=== PATIENT | female | born 1975 | race Caucasian/White ===

== ENCOUNTER 2016-07-08 05:32 | Inpatient (IN) | payer OTHER ==
[~2016-07-08] VITALS: Ht 172.7 cm; Wt 72.6 kg
[2016-07-08] MEDS ORDERED: PROZ20 PO (06:04)
[2016-07-08] MEDS ORDERED: PREN1TAB25 PO (06:04)
[2016-07-08] MEDS ORDERED: OMEP40CA36 PO (06:05)
[2016-07-08] MEDS ORDERED: Sodium Citrate-Citric Acid 15 mL Solution PO SCH (06:30)
[2016-07-08] MEDS ORDERED: Oxytocin 10 Unit/mL Inj IM PRN ×2 (06:30→09:05)
[2016-07-08] MEDS ORDERED: Hemorrhage Kit, Post Partum XX ONE ×2 (06:30→09:05)
[2016-07-08] MEDS ORDERED: Carboprost 250 mCg/mL Inj IM PRN ×2 (06:30→09:05)
[2016-07-08] MEDS ORDERED: Methylergonovine 0.2 mg/mL Inj IM PRN ×2 (06:30→09:05)
[2016-07-08 06:46] LABS: Mean Corpuscular Hemoglobin 30.3 pg (27.0-35.0)
--- NOTE | 2016-07-08 06:49 | PCM.HPOB ---
Subjective Date of Service: Jul 08, 2016 Referring Provider: Admitting Physician: Julio Negron MD Primary Care Physician: Sosa Clark MD Attending Physician: Julio Negron MD Chief Complaint Melania Badillo is a 40 year old female at 39 weeks and 1 day whose is complicated by advanced maternal age, Rh negative, and prior section who presents for scheduled section. She has had some contractions that last for an hour but are not closer than 10 minutes together and are weak and non-painful. She has measured small for gestational age throughout but she also did with prior . Ultrasound on revealed a single living intrauterine gestation demonstrating appropriate interval growth with and EFW in the 57th percentile for gestational age. will be present for operation. Patient received rhogam at 28 weeks. labs inlcude blood type A negative , antibody negative, varicella immune, RPR nonreactive, hepatitis B antigen negative, and HIV screen nonreactive. History of Present History of Present Illness Term present for repeat section. Obstetrical Complications: Other (Rh negative, advanced maternal age, and prior section) Past Medical History Obstetrical History: female with prior section. Rh negative. Gynecologic History: Normal pap smear in October of 2015. Medical History: Depression Surgical History: section Hx Tobacco Use: No Hx Alcohol Use: No Hx Substance Use: No Past Family History Family History Diabetes and hypertension on paternal side. No history of cancer. Living Arrangement: with Family Genetic Screening/Counseling Genetic Screening/Counseling: Negative Baby father-had child w defect: No Review of Systems Constitutional: Y: Change of appitite, Chills, Dizziness, Fever, Malaise, Other , Pain, Sweats, Weakness, Weight loss Eyes: Denies: Blurred Vision, Conjunctive Inflammation, Double Vision, Eyelid Inflammation, Other, Pain, Redness, Vision Changes Cardiovascular: Denies: Chest Pain, Edema, Orthopnea, Other, Palpitations, SOB while laying flat Respiratory: Denies: Cough, Cough with bloody sputum, Other, Pleuritic Chest Pain, Pleuritic Chest Pain, SOB with Exertion, Sputum, Wheezing Gastrointestinal: Denies: Abdominal Pain, Black tarry stools, Blood in stool ( red), Change in Appetite, Constipation, Diarrhea, Epigastric pain, Heartburn, Nausea, Other, Use of Laxatives, Vomiting Genitourinary: Denies: Anuria, Change in Frequency, Dysuria, Hematuria, Incontinence, Nocturia, Other, Retention Musculoskeletal: Denies: Back Pain, Deformity, Limitation of Function, Neck Pain, Other, Redness, Shoulder Pain, Swelling Skin: Denies: Bruising, Dry or Flakiness, Jaundice, Lesions, Other, Rash, Scars , Ulcers Neurological: Denies: Change in Speech, Confusion, Dizziness, Incoordination, Numbness, Other, Seizures, Somnolence, Tremors, Weakness Psychologic: Reports: Anxious Hematologic: Denies: Abnormal bleeding, Adenopathy, Bruising, Other Medications Home medications vitamins Omeprazole Allergy Coded Allergies: No Known Allergies (Unverified , 07/08/16) Exam Constitutional: Well-developed, Well-nourished, Normal habitus HEENT: Atraumatic, PERRLA, EOMI, Scleral Anicteric Lungs: Clear to Auscultation, Normal Air Movement Heart: Regular Rate/Rhythm, Normal S1, Normal S2, No Murmurs/Rubs/Gallops Abdomen: Gravid, Normal bowel sounds, No tenderness Extremities: Pulses Palpable x4, Warm, No Edema Neurological/Psychiatric: Alert, Oriented X3, Cooperative, No Acute Distress Neuro: Grossly Neurologically Intact Labs/Diagnostics Labs CBC Test 07/08/16 06:30 White Blood Count 7.3th/mm3 (3.8-10.1) Red Blood Count 3.89mil/mm3 (3.90-5.20) Hemoglobin 11.8g/dL (12.0-15.6) Hematocrit 35.4% (35.0-46.0) Mean Corpuscular Volume 91.0fL (81-100) Mean Corpuscular Hemoglobin 30.3pg (27.0-35.0) Mean Corpuscular Hemoglobin Concent 33.3% (32.0-37.0) Red Cell Distribution Width 13.0% (12.3-15.4) Platelet Count 313bil/L (150-400) Maternal Blood Type: A Hx Rho(D) Immune Globulin: Yes Antibody Screen: negative Group B Strep Results: Negative Previous Infant with GBS: No Rubella: Immune Additional Information Rhogam given at 28 weeks. OB Intrapartum Assessment/Plan Assessment 1. female at 39 weeks 1 day scheduled for repeat section 2. Rh negative 3. Advanced maternal age 4. Prior section 5. Depression Intrapartum plan 1. Planned repeat section this morning, 07/08/16. wishes to be present for procedure. 2. Patient currently not on medication for depression. 3. Rhogam received at 28 weeks. Additional dose to be ordered. 4. Plan for routine care after section. Attending Statement The patient was seen and examined together with Dr. Dylan Herrera DO on 2016 and I agree with the history, exam and plan as outlined in the note above. DYLAN HERRERA DO Jul 08, 2016 06:49 Julio Negron MD Jul 08, 2016 09:41
--- NOTE | 2016-07-08 07:22 | PCM.HPANE ---
Patient Data Surgeon Admitting Provider:Julio Negron MD Attending Provider:Julio Negron MD Primary Care Physician:Sosa Clark MD Other Provider:Fang Harris Anesthesia Reason for Visit repeat section repeat section Ht/WT & BMI Body Mass Index Allergies Coded Allergies: No Known Allergies (Unverified , 07/08/16) Diabetes History Hx Diabetes?: No MRSA MRSA: No Medications Hypertension Medication: No Home Meds Incl Beta Aaron: No Reported Medications Omeprazole 40 Mg Capsule.dr40 Mg PO Ref 0 07/08/16 Fluoxetine (Prozac)20 Mg [id number] Mg PO MORNING Ref 0 07/08/16 Vit#96/Ferrous Fum/FA ( Tablet)1 Each Tablet1 Each PO DAILY 07/08/16 History History of ENT Problems?: No Hx of Heart Problems?: No Hx of Respiratory Problem?: No Hx Neurologic Problems?: No Hx of GI Problems?: No Hx of Problems?: No HX of Peritoneal Dialysis: No Female Hx: Positive for:: Currently Hx Musculoskeletal Problems?: No Hx of Psycho/Social Problems?: No Hx Surgeries?: Yes (c/s with epidural) Hx Any Other Health Problems?: No Hx Alcohol Use: NoHx Substance Use: No Smoking Status: Never Smoker Stop/Bang Treated for Sleep Apnea?: No Do You Have a CPAP Machine?: No JORGITO Risk Assessment: Low Risk, <3 Yes Risk Assessment Category Category 1A: Patient has history of documented sleep apnea, and HAS NOT received any narcotic, sedative or anesthesia administration during this stay. Category 1B: Patient has history of documented sleep apnea, and HAS received any narcotic , sedative or anesthesia administration during this stay Category 2: Patient has SUSPECTED Obstructive Sleep Apnea, and HAS received any narcotic , sedative or anesthesia administration during this stay. Category 3: Patient has SUSPECTED Obstructive Sleep Apnea and HAS NOT received narcotic, sedative or anesthesia administration during this stay. Category 4: Outpatient in Procedural Areas with known sleep apnea or who screen positive for High Risk via the STOP/BANG questionnaire. Exam Exam General Appearance: Alert, Oriented X3, Cooperative, No Acute Distress HEENT/AIRWAY: MP 2 Lungs: Clear to Auscultation, Normal Air Movement Heart: Exam Unremarkable, Regular Rate/Rhythm, No Murmurs/Rubs/Gallops Meds/Labs/Diagnostics Labs Test 07/08/16 06:30 White Blood Count 7.3th/mm3 (3.8-10.1) Red Blood Count 3.89mil/mm3 (3.90-5.20) Hemoglobin 11.8g/dL (12.0-15.6) Hematocrit 35.4% (35.0-46.0) Mean Corpuscular Volume 91.0fL (81-100) Mean Corpuscular Hemoglobin 30.3pg (27.0-35.0) Mean Corpuscular Hemoglobin Concent 33.3% (32.0-37.0) Red Cell Distribution Width 13.0% (12.3-15.4) Platelet Count 313bil/L (150-400) Plan Impression Patient chart reviewed, patient interviewed and anesthestic plan with risks, benefits, and alternatives discussed, and informed consent obtained. ASA Physical Status: ASA1 Normal Healthy Anesthetic Plan: SAB Bene/Risks/Altern/Consents: Yes HP Complete Prior to Induction: Yes Drake Ag MD Jul 08, 2016 07:22
[2016-07-08] MEDS ORDERED: EPHEDrine Sulfate 50 mg/mL Inj IVPUSH PRN (07:25)
[2016-07-08] MEDS ORDERED: fentaNYL-PF 50 mCg/mL 2 mL Inj IVPUSH PRN (07:25)
[2016-07-08] MEDS ORDERED: Atropine 0.4 mg/mL Inj IV PRN (07:25)
[2016-07-08] MEDS: Lactated Ringer's 1,000 ML IV SCH ×4 (07:26→16:26)
[2016-07-08] MEDS ORDERED: Oxytocin 10 Unit/mL Inj ONE (07:55)
[2016-07-08] MEDS ORDERED: EPHEDrine/NS 5 mg/mL 5 mL Syringe ONE (07:55)
[2016-07-08] MEDS ORDERED: Phenylephrine/NS 100 mCg/mL 10 mL Syringe IVPUSH ONE (07:55)
[2016-07-08] MEDS ORDERED: Morphine PF 1 mg/mL 10 mL Inj ONE (07:57)
[2016-07-08] MEDS ORDERED: fentaNYL-PF 50 mCg/mL 2 mL Inj ONE (07:57)
[2016-07-08] MEDS ORDERED: Sodium Chloride LOK Flush 10 mL Syringe IVFLUSH PRN (09:05)
[2016-07-08] MEDS ORDERED: LANOlin HPA 7 Gm Ointment TOPICAL PRN (09:05)
[2016-07-08] MEDS ORDERED: Oxytocin 30 Units/500 mL LR 30 UNITS in IV Premix 1 EACH IV PRN (09:05)
--- NOTE | 2016-07-08 09:09 | PCM.SURGOP ---
Surgical Operative Report Date of Service: Jul 08, 2016 Pre Operative Diagnosis 1. Previous 2. Desires Sterilization 3. AMA Post Operative Diagnosis 1. Previous 2. Desires Sterilization 3. AMA Procedure: 1. Repeat low transverse delivery 2. Bilateral tubal ligation using a modified [place] method. Surgeon and Burnisher: Surgeon: Julio Negron MD Assistants: Brenda Woodward MD Resident: Sera Mcpherson DO PGY1 Dr. Woodward was necessary for this procedure to help with exposure and delivery of infant. Indication for Procedure 40 y/o -0-0-1 at 39 weeks gestation who had a previous delivery and desires a repeat with tubal ligation. Findings: Intraoperative findings showing a normal-appearing uterus, fallopian tubes and ovaries bilaterally. There was no significant abdominal adhesions. There was a female in cephalic presentation with an infant weight of 3277 g and Apgars of 7 and 9. Procedure Details Patient was taken to the operating room where her epidural anesthesia was found adequate. She was placed in a lithotomy position in a leftward tilt and prepared and draped in the normal sterile fashion. A Pfannenstiel incision was made with scalpel and this incision was carried down to the underlying fascia with the Bovie cautery. The fascia was nicked in the midline and this incision was extended laterally with the Beltran scissors. The underlying rectus muscle was dissected off with blunt and sharp dissection. The rectus muscles were in midline and the peritoneum was entered bluntly with the surgeon's hands. This opening was then extended with the surgeon's hands and gentle traction. The lower uterine segment was identified a bladder flap was created and the uterus was incised in low transverse fashion with scalpel. The infant was delivered in a cephalic presentation without difficulty. The cord was doubly clamped and ligated after 1 minute and handed off to the awaiting nurse and respiratory therapist. Cord blood was sent. The placenta was removed manually and the uterus was exteriorized and cleared of all clots and debris. The uterine incision was then repaired with 0 Vicryl suture in a running fashion. A second suture of 0 Vicryl was used for hemostasis . The gutters were irrigated with copious amounts of normal saline. Good hemostasis was assured. The uterus was returned to the patient's perineal cavity. The uterine incision was inspected a second time and noted to be hemostatic. The fascia was then reapproximated with 0 Vicryl suture in a running fashion. The subcutaneous layer was closed with 0 plain gut. The skin was closed with a 4-0 Monocryl in a subcutaneous fashion. Dermabond and Steri-Strips are applied. All lap, instrument, and needle counts were correct 2 at the procedure the patient was taken to her room awake and in good condition. Complications There were no periprocedural complications identified. Surgical Specimen Removed: Yes Specimen sent to Pathology: No Surgical Specimen description: Placenta Anesthetic Plan: SAB Grafts, Implants: None Output, Estimated Blood Loss: 600 Blood Administration during lopez: No Catheters: None Post Operative Plan Routine postoperative and care. Julio Negron MD Jul 08, 2016 09:09
[2016-07-08] MEDS ORDERED: Acetaminophen IV 1,000 MG in IV Premix 1 EACH IV PRN (12:20)
--- NOTE | 2016-07-08 17:59 | PCM.ANEP1 ---
Post Anesthesia Phase 1 PACU Phase 1 Assessment Date of Service: Jul 08, 2016 Anesthetic Administered: SAB Level of Alertness: Awake, talking JACKSON's with Equal Strength: Yes Pain: No Nausea or Vomiting: No Oxygen Delivery: Nasal Cannula Lungs: Clear to Auscultation, Normal Air Movement Dermatome Level: T10 (Umbilicus) Drake Ag MD Jul 08, 2016 17:59
--- NOTE | 2016-07-08 18:00 | PCM.ANEP2 ---
Post Anesthesia Evaluation ASA/CMS Post Anesthesia VS in Patient's Normal Range?: Yes Resp Stable; Airway Patent?: Yes CV Function & Hydration Stable: Yes Mental Status Recovered?: Yes Pain control Satisfactory?: Yes N/V Control Satisfactory?: Yes Drake Ag MD Jul 08, 2016 18:00
[2016-07-09] MEDS: oxyCODONE-Acetamin 5-325 mg Tablet PO PRN ×5 (01:49→20:31)
--- NOTE | 2016-07-09 07:07 | PCM.PNOBPP ---
Subjective Date of Service Jul 09, 2016 Post : Repeat Ceserean Delivery Subjective Melania Badillo is a 40 year old female day 1 after repeat section and tubal ligation. was complicated by advanced maternal age, Rh negative, and prior section. Patient received rhogam at 28 weeks and yesterday (07/08). Patient is doing well this morning. Bleeding is light, tolerating diet without nausea and vomiting, Acosta removed and urinating without difficulty, passing flatus but no BM. Patient ambulating in room and pain controlled with Percocet PRN. She is exclusively. Lochia: Light Pain Management: PO pain meds (Percocet) Gastrointestinal: No N/V, Passing Flatus Postop Activity: Ambulating Independently Group B Strep Results: Negative Rubella: Immune Blood Type: A RH Type: Negative Labs Laboratory Tests 07/08/16 06:30: White Blood Count 7.3, Red Blood Count 3.89, Hemoglobin 11.8, Hematocrit 35.4, Mean Corpuscular Volume 91.0, Mean Corpuscular Hemoglobin 30.3, Mean Corpuscular Hemoglobin Concent 33.3, Red Cell Distribution Width 13.0, Platelet Count 313 Exam Vital Signs Vital Signs: VS reviewed, stable Exam Abdomen: Uterus is, Fundus firm : Voiding without difficulty, Acosta catheter (removed at 0500 on 07/09) Extremities: No tenderness/swelling, No edema Lungs: Clear to Auscultation, Normal Air Movement Heart: Regular Rate/Rhythm, Normal S1, Normal S2, No Murmurs/Rubs/Gallops General: Alert, Oriented X3, Cooperative, No Acute Distress Surgical Wound : Wound Location/Description Pfannensteil incision Incision General Appearence: Wound under dressing Dressing & Drainage Status: Dry & Intact, No Odor OB Post Assessment/Plan Assessment 1. female day 1 after repeat section and tubal ligation. 2. Rh negative. 3. Advanced maternal age. 4. Prior section. 5. Depression. Pain Evaluation: Adequate Pain Control Post plan: Continue routine post care, Discharge home tomorrow Plan: 1. Routine care. 2. Discontinued IV pain medications and switched to oral Percocet PRN. 3. Continue to ambulate. 4. General diet as tolerated. 5. Rhogam received at 28 weeks and additional dose given on 07/08 after section. 6. Plan for discharge tomorrow. DYLAN HERRERA DO Jul 09, 2016 06:42
[2016-07-09 07:39] LABS: Mean Corpuscular Hemoglobin 30.7 pg (27.0-35.0); Mean Corpuscular Volume 92.1 fL (81-100)
[2016-07-10] MEDS: oxyCODONE-Acetamin 5-325 mg Tablet PO PRN ×2 (02:40→08:58)
[2016-07-10] MEDS ORDERED: IBUP800T28 PO (06:34)
[2016-07-10] MEDS ORDERED: OXYC1TAB24 PO (06:34)
[2016-07-10] MEDS ORDERED: ASCO500C6 PO (06:34)
[2016-07-10] MEDS ORDERED: FERR-83 PO (06:34)
[2016-07-10] MEDS ORDERED: DOCU-41 PO (06:34)
--- NOTE | 2016-07-10 06:42 | PCM.DIOB ---
SERA HERRERA DO 07/10/16 0642: Obstetrical Disch Instruction Date of Service: Jul 10, 2016 Dates of Hospitalization Date of Hospital Admission Jul 08, 2016 at 05:32 Providers Admitting Physician: Julio Negron MD Primary Care Physician: Sosa Clark MD Attending Physician: Julio Negron MD Discharge Diagnosis Discharge Diagnosis 1. female day 2 after repeat section and tubal ligation. 2. Rh negative. 3. Advanced maternal age. 4. Prior section. 5. Depression. Problems: Diet Discharge Diet: No restrictions Activity Discharge Activity-General: Pelvic Rest for 6 weeks, Try not to overdue, Be up and about, Activity as pain allows, Activity as energy allows, No lifting >10 pounds for 4-6 weeks Dressing and Incisional Care Dressing Care: Allow Steri Stripes to fall off Hygiene: May shower, DO NOT soak incision under water, NO bathtub, hot tub or whirlpool Additional Instructions Discharge Instructions Continue your vitamin. Please take the iron and vitamin c together for your anemia. Do not take more pain medication (Percocet) than is necessary -- less is better. Percocet pills have Tylenol (acetaminophen) in them at 325mg per pill. Do not take Tylenol in addition to your pain medication but should take one or the other. Both iron and Percocet can give you constipation so you have also been given a prescription for docusate to keep you regular. Be sure to follow up in 2 weeks and then again in 6 [facility] at [facility]. Pelvic rest for 6 weeks (nothing per vagina including intercourse, tampons) If you have a fever greater than 100.4, please call [facility]. There is always someone finisher fine diamond dies to talk to. If you have an increase in bleeding, call [facility]. If you have a lot of bleeding suddenly, especially if you have symptoms of dizziness & weakness with it, get emergency help. If you start experiencing extreme depression, especially if you feel that you are a danger to yourself or your family, seek emergency help. You have been through a lot -- BE SURE TO TAKE CARE OF YOURSELF. You have been sent home with the following prescriptions: - Percocet 5/325 mg, take 1 tab every 4-6 hours as needed for pain. - Colace 100 mg twice a day as needed for constipation. - Ferrous sulfate 325 mg every day. - Vitamin C 500 mg every day. Take with iron. - Ibuprofen 800mg take 1 tab every 8 hours as needed for pain. Follow Up Plan Follow Up Plan Follow-up in 2 and 6 weeks with [facility]. Follow-up Provider (F9): Julio Negron MD Follow-up appointment: Weeks (2 weeks and again in 6 weeks) Call your provider for: Fever or Chills, Shortness of breath, Heavy vaginal bleeding, Heavy bleeding, Epigastric pain, Excessive constipation, Vaginal discomfort, Red painful breasts Julio Negron MD 07/10/16 1128: Obstetrical Disch Instruction Attending Statement The patient was seen and examined together with Dr. Sera Herrera DO on 2016 and I agree with the history, exam and plan as outlined in the note above. SERA HERRERA DO Jul 10, 2016 06:42 Julio Negron MD Jul 10, 2016 11:28
--- NOTE | 2016-07-10 07:05 | PCM.DC.OB ---
Obstetrical Discharge Summary Date of Service Jul 10, 2016 Date of hospital admission Jul 08, 2016 at 05:32 Date of Discharge: Jul 10, 2016 Providers Admitting Physician: Julio Negron MD Primary Care Physician: Sosa Clark MD Attending Physician: Julio Negron MD Diagnosis at Time of Discharge 1. female day 2 after repeat section and tubal ligation. 2. Rh negative. 3. Advanced maternal age. 4. Prior section. 5. Depression. Problems: Invasive procedures section and tubal ligation Date of Procedure: Jul 08, 2016 Brief History and Physical: Per Dr. Herrera's H&P: Melania Badillo is a 40 year old female at 39 weeks and 1 day whose is complicated by advanced maternal age, Rh negative, and prior section who presents for scheduled section. She has had some contractions that last for an hour but are not closer than 10 minutes together and are weak and non-painful. She has measured small for gestational age throughout but she also did with prior . Ultrasound on revealed a single living intrauterine gestation demonstrating appropriate interval growth with and EFW in the 57th percentile for gestational age. will be present for operation. Patient received rhogam at 28 weeks. labs inlcude blood type A negative , antibody negative, varicella immune, RPR nonreactive, hepatitis B antigen negative, and HIV screen nonreactive. Hospital Course: Melania Badillo is a 40 year old female day 2 after repeat section and tubal ligation. was complicated by advanced maternal age, Rh negative, and prior section. Patient received rhogam at 28 weeks and second dose on 07/08. Patient is doing well this morning. Bleeding is light, tolerating diet without nausea and vomiting, Acosta removed and urinating without difficulty, passing flatus but no BM. Patient ambulating in room and pain controlled with Percocet and ibuprofen PRN. She is exclusively. Ascorbic Acid (Vitamin C) 500 Mg Capsule.er 500 MG PO DAILY Prescribed by: SERA HERRERA DO Docusate Sodium (Colace) 100 Mg Capsule 100 MG PO BID PRN PRN For Constipation Prescribed by: SERA HERRERA DO Ferrous Sulfate (Ferrous Sulfate) 325 Mg Tablet 325 MG PO DAILY Prescribed by: SERA HERRERA DO Fluoxetine (Prozac) 20 Mg Capsule 20 MG PO MORNING (Reported) Last Taken: Unknown Dose on 07/07/16 1030 Ibuprofen (Ibuprofen) 800 Mg Tablet 800 MG PO TID PRN PRN For Pain Prescribed by: SERA HERRERA DO Omeprazole (Omeprazole) 40 Mg Capsule.dr 40 MG PO (Reported) Last Taken: Unknown Dose on Unknown Date & Time Vit#96/Ferrous Fum/ FA ( Tablet) 1 Each Tablet 1 EACH PO DAILY (Reported) Last Taken: UNKNOWN on Unknown Date & Time oxyCODONE-Acetaminophen 5-325 mg (oxyCODONE-Acetaminophen 5-325 mg) 1 Each Tablet 1 TAB PO Q4-6H PRN PRN For Pain Prescribed by: SERA HERRERA DO Discharge Medications: - Percocet 5/325 mg, take 1 tab every 4-6 hours as needed for pain. - Colace 100 mg twice a day as needed for constipation. - Ferrous sulfate 325 mg every day. - Vitamin C 500 mg every day. Take with iron. - Ibuprofen 800mg take 1 tab every 8 hours as needed for pain. Follow-up plan Follow-up in 2 and 6 weeks with [facility]. Discharge Diet: No restrictions Discharge Activity-General: Pelvic Rest for 6 weeks, Try not to overdue, Be up and about, Activity as pain allows, Activity as energy allows, Other (no lifting greater than 10 pounds for 4-6 weeks.) Patient instructions Continue your vitamin. Please take the iron and vitamin c together for your anemia. Do not take more pain medication (Percocet) than is necessary -- less is better. Percocet pills have Tylenol (acetaminophen) in them at 325mg per pill. Do not take Tylenol in addition to your pain medication but should take one or the other. Both iron and Percocet can give you constipation so you have also been given a prescription for docusate to keep you regular. Be sure to follow up in 2 weeks and then again in 6 weeks at [facility]. Pelvic rest for 6 weeks (nothing per vagina including intercourse, tampons) If you have a fever greater than 100.4, please call [facility]. There is always someone fiction and nonfiction prose writer to talk to. If you have an increase in bleeding, call [facility]. If you have a lot of bleeding suddenly, especially if you have symptoms of dizziness & weakness with it, get emergency help. If you start experiencing extreme depression, especially if you feel that you are a danger to yourself or your family, seek emergency help. You have been through a lot -- BE SURE TO TAKE CARE OF YOURSELF. You have been sent home with the following prescriptions: - Percocet 5/325 mg, take 1 tab every 4-6 hours as needed for pain. - Colace 100 mg twice a day as needed for constipation. - Ferrous sulfate 325 mg every day. - Vitamin C 500 mg every day. Take with iron. - Ibuprofen 800mg take 1 tab every 8 hours as needed for pain. Attending Statement: The patient was seen and examined together with Dr. Sera Herrera DO on 2016 and I agree with the history, exam and plan as outlined in the note above. SERA HERRERA DO Jul 10, 2016 07:01 Julio Negron MD Jul 10, 2016 11:28
[2016-07-10 10:36] VITALS: BP 130/80; PULSE 64; RESP 12
--- NOTE | 2016-07-10 11:25 | PATH ---
SURGICAL PATHOLOGY Attending Physician:Julio Negron, CASE STATUS: Signed Out PATIENT NAME: MICHELLE TREJO PID: [id number] : 1975 DATE COLLECTED:07/08/2016 21:17 SPECIMEN: 1: Fallopian Tube, Sterilization 2: Fallopian Tube, Sterilization CLINICAL HISTORY: 1). PORTION OF LEFT FALLOPIAN TUBE 2). PORTION OF RIGHT FALLOPIAN TUBE FINAL DIAGNOSIS: 1.PORTION OF LEFT FALLOPIAN TUBE: SEGMENT OF FALLOPIAN TUBE WITH NO PATHOLOGIC ALTERATIONS. 2.PORTION OF RIGHT FALLOPIAN TUBE: SEGMENT OF FALLOPIAN TUBE WITH NO PATHOLOGIC ALTERATIONS. ICD10 CODE Z30.2 GROSS DESCRIPTION: The specimen is received in two formalin filled containers labeled with the patient's name. 1). The specimen is sublabeled "left tube" and consists of a 1.6 x 0.8 x 0.7 CM cylindrical-shaped portion of tissue. The specimen is inked blue. The specimen is trisected and entirely submitted in cassettes 1A. 2). The specimen is sublabeled "right tube" and consists of a 1.3 x 0.7 x 0.7 CM cylindrical-shaped portion of tissue. The specimen is inked blue. The specimen is trisected and entirely submitted in cassette 2A. 07/08/2016 DAC MICRO DESCRIPTION: See diagnosis. ICD-9 CODES: CPT CODES: 1: 71659 2: 21858 Electronically Signed Out Caroline Garza MD [facility] Pathology [facility], [place] [address] Technical component performed at [facility], [address] [place] [address] Ave[address], [place], [address]
== END 2016-07-10 11:53 | disposition home or self-care (01) | DRG 766 ==
LOC: FBC 05:32 → EDSTATUS 07:15
PROVIDERS: ADMIT Obstetrics & Gynecology; ATTEND Obstetrics & Gynecology
PROC: 0UL70ZZ Occlusion of Bilateral Fallopian Tubes, Open Approach (ICD-10-PCS; 2016-07-08)
PROC: 10D00Z1 Extraction of Products of Conception, Low, Open Approach (ICD-10-PCS; principal; 2016-07-08 07:15)
DX: O34.211 Maternal care for low transverse scar from previous cesarean delivery (principal); Z3A.39 39 weeks gestation of pregnancy; O09.523 Supervision of elderly multigravida, third trimester; Z37.0 Single live birth; Z30.2 Encounter for sterilization; O99.344 Other mental disorders complicating childbirth; F32.9 Major depressive disorder, single episode, unspecified